=== PATIENT | male | born 1970 | race Caucasian/White ===

== ENCOUNTER 2018-03-27 20:27 | Observation (INO) ==
--- NOTE | 2018-03-27 22:05 | ED ---
HPI General Chief complaint: Hypertension Stated complaint: heart racing /high bp Time Seen by Provider: 03/27/18 21:37 Source: patient Mode of arrival: ambulatory Limitations: no limitations History of Present Illness HPI narrative: 47yo M with PMH of HTN here with c/o left sided chest pain around 7pm. Pain is sharp, nonradiating and associated with diaphoresis and dizziness. Said pain has resolved. Denies any fever, sob, n/v, abdominal pain , focal weakness or numbness. Related Data Home Medications Medication Instructions Recorded Confirmed No Known Home Medications 03/27/18 03/27/18 Allergies Allergy/AdvReac Type Severity Reaction Status Date / Time No Known Allergies Allergy Verified 03/27/18 20:39 Review of Systems ROS: all other systems reviewed are negative [facility] Medical History Medical History History of deviated nasal septum (Acute) Hypertension (Acute) Surgical History Surgical History Hx of appendectomy (Acute) S/P LASIK surgery of both eyes (Acute) Social History Social History Substance History: No History of Abuse Second Hand Smoke Exposure: Yes Smoking Status: Never smoker How Often Do You Have a Drink Containing Alcohol: Never Recent Travel in [facility] within the Last 8 Weeks: No Recent Out of Country Travel within the Last 8 Weeks: No Immunization History Tetanus Immunization: Unsure Exam Narrative Exam Narrative: GENERAL: 47yo M not in distress. SKIN: Focused skin assessment warm/dry. HEAD: Atraumatic. Normocephalic. EYES: Pupils equal and round. No scleral icterus. No injection or drainage. ENT: No nasal bleeding or discharge. Mucous membranes pink and moist. NECK: Trachea midline. No JVD. CARDIOVASCULAR: Regular rate and rhythm. No murmur appreciated. RESPIRATORY: No accessory muscle use. Clear to auscultation. Breath sounds equal bilaterally. GASTROINTESTINAL: Abdomen soft, non-tender, nondistended. MUSCULOSKELETAL: No obvious deformities. No clubbing. No cyanosis. No edema. NEUROLOGICAL: Awake and alert. No obvious cranial nerve deficits. Motor grossly within normal. Normal speech. PSYCHIATRIC: Appropriate mood and affect; insight and judgment normal. Course Initial Documented Vital Signs Temperature 97.6 F 03/27/18 20:39 Pulse Rate 83 03/27/18 20:39 Respiratory Rate 20 03/27/18 20:39 Blood Pressure 148/69 H 03/27/18 20:39 Pulse Oximetry 96 03/27/18 20:39 Last Documented Vital Signs Temperature 97.6 F 03/27/18 20:39 Pulse Rate 69 03/27/18 22:45 Respiratory Rate 18 03/27/18 22:45 Blood Pressure 123/74 03/27/18 22:45 Pulse Oximetry 95 03/27/18 22:45 Medical Decision Making MDM Narrative Medical decision making narrative: 47yo M with atypical chest pain but has some risk factors. Last stress test was 3 years ago. Labs reviewed, no leukocytosis. H/H normal. Troponin negative. CXR negative. Pt given aspirin. He is currently chest pain free. He does not see a physician and last time he saw one was 3 years ago when he had the chest pain and negative stress test here. Will admit to chest pain center for serial EKG and cardiac enzymes. Discussed with Dr. Mcleod and accepted to her service. Medical Screen Exam Complete: Yes Emergency Medical Condition: Yes Differential Diagnosis Differential Diagnosis: ACS vs. gastritis vs. costonchondritis Lab Data Result diagrams: 03/27/18 22:05 03/27/18 22:05 Lab Results 03/27/18 03/27/18 03/27/18 Range/Units 22:05 22:05 22:05 CBC w Diff Auto diff final WBC 6.1 (4.0-11.0) th/mm3 RBC 4.53 (4.50-5.90) mil/mm3 Hgb 13.5 (13.0-17.0) gm/dL Hct 40.4 (39.0-51.0) % MCV 89.2 (80.0-100.0) fL MCH 29.7 (27.0-34.0) pg MCHC 33.3 (32.0-36.0) % RDW 13.4 (11.6-17.2) % Plt Count 266 (150-450) th/mm3 MPV 8.2 (7.0-11.0) fL Neut % (Auto) 50.7 (16.0-70.0) % Lymph % (Auto) 34.3 (9.0-44.0) % Barbour % (Auto) 10.9 H (0.0-8.0) % Eos % (Auto) 3.5 (0.0-4.0) % Baso % (Auto) 0.6 (0.0-2.0) % Neut # (Auto) 3.1 (1.8-7.7) th/mm3 Lymph # (Auto) 2.1 (1.0-4.8) th/mm3 Barbour # (Auto) 0.7 (0.0-0.9) th/mm3 Eos # (Auto) 0.2 (0.0-0.4) th/mm3 Baso # (Auto) 0.0 (0.0-0.2) th/mm3 WBC Differential . Differential Comment . PT 9.8 (9.8-11.6) sec INR 1.0 Ratio APTT 28.7 (23.4-31.7) sec Sodium 139 (136-145) meq/L Potassium 3.7 (3.5-5.1) meq/L Chloride 105 (98-107) meq/L Carbon Dioxide 27.2 (21.0-32.0) meq/L Anion Gap 7 (5-15) meq/L BUN 17 (7-18) mg/dL Creatinine 1.00 (0.60-1.30) mg/dL Estimated GFR 80 L (>89) mL/min Random Glucose 107 H (74-106) mg/dL Calcium 8.0 L (8.5-10.1) mg/dL Troponin I Less than 0.02 L (0.02-0.05) ng/mL Imaging Data Radiologist's impression: Chest X-Ray 03/27/18 21:42 CONCLUSION: Negative examination. ECG Data EKG Prior to Arrival: No Attestation: I personally reviewed and interpreted this ECG as follows: Interpretation: NSR 64bpm. Normal axis. AL interval 146. No significant ST elevation or depression. Discharge Plan Discharge Disposition Patient Disposition: ED Admit(ED Internal Use Only) Discharge Order Discharge Orders: ED Use Only Admit Order (Routine); Ordered 03/27/18 Ordered By: Linh Green Discharge Details Diagnosis: Chest pain Physicians Team ED Provider: Linh Green Primary Care Provider: Primary Care GaeliAdenike Attending Provider: Argelia Mcleod Status ED Status: Admitted Observation Patient
--- NOTE | 2018-03-27 22:05 | XR ---
EXAM DATE: 03/27/2018 10:01 PM EST AGE/SEX: 47 years / Male INDICATIONS: Short of breath, chest pain and dizziness. CLINICAL DATA: This is the patient's initial encounter. Patient reports that signs and symptoms have been present for 1 day and indicates a pain score of 3/10. MEDICAL/SURGICAL HISTORY: None. None. COMPARISON: No prior exams available for comparison. FINDINGS: A single AP view of the chest demonstrates the lungs to be symmetrically aerated without evidence of mass, infiltrate or effusion. The cardiomediastinal contours are unremarkable. Osseous structures a re intact. CONCLUSION: Negative examination. Electronically signed by: Tal Cordova MD 03/27/2018 10:03 PM EST
[2018-03-27 22:24] LABS: Baso % (Auto) 0.6 % (0.0-2.0); Eos # (Auto) 0.2 th/mm3 (0.0-0.4); Eos % (Auto) 3.5 % (0.0-4.0); Hematocrit 40.4 % (39.0-51.0); Hemoglobin 13.5 gm/dL (13.0-17.0); Lymph # (Auto) 2.1 th/mm3 (1.0-4.8); Lymph % (Auto) 34.3 % (9.0-44.0); Mean Corpuscular HGB Conc 33.3 % (32.0-36.0); Mean Corpuscular Hemoglobin 29.7 pg (27.0-34.0); Mean Corpuscular Volume 89.2 fL (80.0-100.0); Mean Platelet Volume 8.2 fL (7.0-11.0); Mono # (Auto) 0.7 th/mm3 (0.0-0.9); Mono % (Auto) 10.9 % (0.0-8.0); Neut # (Auto) 3.1 th/mm3 (1.8-7.7); Neut % (Auto) 50.7 % (16.0-70.0); Platelet Count 266 th/mm3 (150-450); Red Blood Count 4.53 mil/mm3 (4.50-5.90); Red Cell Distribution Width 13.4 % (11.6-17.2); White Blood Count 6.1 th/mm3 (4.0-11.0)
[2018-03-27 22:30] LABS: Chloride 105 meq/L (98-107); Potassium 3.7 meq/L (3.5-5.1); Sodium 139 meq/L (136-145)
[2018-03-27 22:33] LABS: Anion Gap 7 meq/L (5-15); Blood Urea Nitrogen 17 mg/dL (7-18); Carbon Dioxide 27.2 meq/L (21.0-32.0); Glucose,Random 107 mg/dL (74-106)
[2018-03-27 22:36] LABS: Activated Partial Thrombo Time 28.7 sec (23.4-31.7); Glomerular Filtration Rate 80 mL/min (>89); Prothrombin Time 9.8 sec (9.8-11.6)
[2018-03-27] MEDS ORDERED: Aspirin 325 MG Tablet PO ONE (22:54)
[2018-03-28 02:30] LABS: Creatine Kinase 95 U/L (39-308)
[2018-03-28 06:11] LABS: Creatine Kinase 93 U/L (39-308)
--- NOTE | 2018-03-28 09:11 | P.HP ---
History of Present Illness Primary Care Physician: No Primary Care Physician Chief Complaint: Chest pain History of Present Illness: 47-year-old male with known history of hypertension who presented to the hospital for evaluation of chest pain. Patient states that he has been in normal state of health and he sat down to have dinner last night and started developing a hot burning sensation over his entire chest with pain in the left side of his chest without any radiation to the neck, back, shoulder, arm. He did have some lightheadedness, dizziness, diaphoresis. He denies any shortness of breath or dyspnea. Patient states that it lasted for approximately an hour until he got to the emergency department where he was given aspirin and the pain resolved. Patient has had previous cardiac workup approximately 3 years ago performed by myself with chest pain center admission. Patient did get ruled out for acute coronary event with serial cardiac enzymes and EKGs. Patient did undergo exercise stress test which was negative for any ischemia. Presently the patient is asymptomatic. Patient has not had any recurrence of any chest discomfort, burning sensation in the chest, diaphoresis since being admitted. - Diagnosis (1) Chest pain Review of Systems All other systems reviewed negative except as stated in HPI Constitutional: Reports excessive sweating Cardiovascular: Reports chest pain Neurologic: Reports dizziness PMFSH - History History Provided By: Patient - Medical History Medical History: Medical History (Last Updated 03/27/18 @ 20:44 by Carmella Rich RN) History of deviated nasal septum Hypertension - Surgical History Surgical History: Surgical History (Last Updated 03/27/18 @ 20:44 by Carmella Rich RN) Hx of appendectomy S/P LASIK surgery of both eyes - Family History Family History: Family History (Last Updated 03/28/18 @ 08:57 by TOO Dinh) Father Family history of heart disease Mother History of brain tumor - Tobacco History Second Hand Smoke Exposure: Yes Smoking Status: Never smoker Tobacco Type: Cigarettes - Alcohol History How Often Do You Have a Drink Containing Alcohol: Never - Substance Use History Substance History: No History of Abuse - Travel History Recent Travel in the [place] Within the Last 8 Weeks: No Recent Travel Out of the Country Within the Last 8 Weeks: No - Immunization History Tetanus Immunization: Unsure Medications and Allergies Active Medications: Active Medications Sodium Chloride (Ns Flush) 2 ml IV.FLUSH BID MANDA Last Admin: 03/28/18 08:47 Dose: 2 ml Sodium Chloride (Ns Flush) 2 ml IV.FLUSH PRN PRN PRN Reason: FLUSH AFTER USING IV ACCESS Allergies Allergy/AdvReac Type Severity Reaction Status Date / Time No Known Allergies Allergy Verified 03/27/18 20:39 Home Medications Medication Instructions Recorded Confirmed Type No Known Home Medications 03/27/18 03/27/18 History Exam Vital signs: Vital Signs 03/27/18 20:39 03/27/18 21:20 03/27/18 22:45 Temperature 97.6 F Pulse Rate 83 65 69 Respiratory Rate 20 18 18 Blood Pressure 148/69 H 140/75 123/74 Pulse Oximetry 96 95 95 03/28/18 00:00 03/28/18 00:25 03/28/18 04:23 Temperature 96.3 F L Pulse Rate 67 75 66 Respiratory Rate 18 Blood Pressure 123/67 135/71 Pulse Oximetry 96 97 03/28/18 08:00 Temperature Pulse Rate 71 Respiratory Rate Blood Pressure Pulse Oximetry Intake & Output 03/27/18 03/28/18 03/28/18 18:59 06:59 18:59 Intake Total 0 / 0 Balance 0 / 0 Weight 92 kg Intake: Oral 0 / 0 Other: # Voids 2 # Urine Diapers 1 Weight On Admission 92 kg Narrative: GENERAL: Well-developed, well-nourished, in no acute distress. alert and orientated HEENT: Head is normocephalic without any lesions or masses noted. Facial features are symmetric. Eyes: Pupils equal round reactive to light. Extraocular muscles are intact. Conjunctivae were clear. Oropharyngeal: Pharynx without any erythema edema. Tongue is midline without deviation. Buccal mucosa is moist without any masses or lesions NECK: Supple without any masses. Trachea midline no deviation. No JVD, no bruits are appreciated CARDIAC: Regular rhythm, regular rate. S1/S2 are heard. No murmurs gallops or rubs. LUNGS: Clear to auscultation bilaterally. No wheeze, rhonchi or rales. No use of accessory muscles on inspiration or expiration. ABDOMEN: Soft, nontender. Nondistended. Bowel sounds heard in all 4 quadrants. No organomegaly or masses. Negative rebound, negative guarding EXTREMITIES: No edema, pulses are equal bilaterally. No cyanosis or clubbing NEUROLOGY: Mood and affect appear appropriate. Cranial nerves II through XII grossly intact. Muscle strength 5/5 in upper and lower extremities bilaterally. Deep tendon reflexes are 2+ in upper and lower extremities bilaterally. Results - Labs CBC & Chem 7: 03/27/18 22:05 03/27/18 22:05 Labs: Laboratory Results - last 24 hr 03/27/18 03/27/18 03/27/18 22:05 22:05 22:05 CBC w Diff Auto diff final WBC 6.1 RBC 4.53 Hgb 13.5 Hct 40.4 MCV 89.2 MCH 29.7 MCHC 33.3 RDW 13.4 Plt Count 266 MPV 8.2 Neut % (Auto) 50.7 Lymph % (Auto) 34.3 Cannon % (Auto) 10.9 H Eos % (Auto) 3.5 Baso % (Auto) 0.6 Neut # (Auto) 3.1 Lymph # (Auto) 2.1 Cannon # (Auto) 0.7 Eos # (Auto) 0.2 Baso # (Auto) 0.0 WBC Differential . Differential Comment . PT 9.8 INR 1.0 APTT 28.7 Sodium 139 Potassium 3.7 Chloride 105 Carbon Dioxide 27.2 Anion Gap 7 BUN 17 Creatinine 1.00 Estimated GFR 80 L Random Glucose 107 H Calcium 8.0 L Total Creatine Kinase Troponin I Less than 0.02 L 03/28/18 03/28/18 01:30 04:00 CBC w Diff WBC RBC Hgb Hct MCV MCH MCHC RDW Plt Count MPV Neut % (Auto) Lymph % (Auto) Cannon % (Auto) Eos % (Auto) Baso % (Auto) Neut # (Auto) Lymph # (Auto) Cannon # (Auto) Eos # (Auto) Baso # (Auto) WBC Differential Differential Comment PT INR APTT Sodium Potassium Chloride Carbon Dioxide Anion Gap BUN Creatinine Estimated GFR Random Glucose Calcium Total Creatine Kinase 95 93 Troponin I Less than 0.02 L Less than 0.02 L - Imaging Impressions Chest X-Ray 03/27/18 21:42 CONCLUSION: Negative examination. Caprini VTE Risk Assessment Caprini VTE Risk Assessment: No/Low Risk (score <= 1) Caprini Risk Assessment Model: Point Value = 1 Point Value = 2 Point Value = 3 Point Value = 5 Age 41-60 Minor surgery BMI > 25 kg/m2 Swollen legs Varicose veins or History of unexplained or recurrent spontaneous Oral contraceptives or hormone replacement Sepsis (< 1 month) Serious lung disease, including pneumonia (< 1 month) Abnormal pulmonary function Acute myocardial infarction Congestive heart failure (< 1 month) History of inflammatory bowel disease Medical patient at bed rest Age 61-74 Arthroscopic surgery Major open surgery (> 45 min) Laparoscopic surgery (> 45 min) Malignancy Confined to bed (> 72 hours) Immobilizing plaster cast Central venous access Age >= 75 History of VTE Family history of VTE Factor V Leiden Prothrombin [id number] Lupus anticoagulant Anticardiolipin antibodies Elevated serum homocysteine Heparin-induced thrombocytopenia Other congenital or acquired thrombophilia Stroke (< 1 month) Elective arthroplasty Hip, pelvis, or leg fracture Acute spinal cord injury (< 1 month) Prophylaxis Regimen: Total Risk Factor Score Risk Level Prophylaxis Regimen 0-1 Low Early ambulation 2 Moderate Order ONE of the following: *Sequential Compression Device (SCD) *Heparin 5000 units SQ BID 3-4 Higher Order ONE of the following medications: *Heparin 5000 units SQ TID *Enoxaparin/Lovenox 40 mg SQ daily (WT < 150 kg, CrCl > 30 mL/min) *Enoxaparin/Lovenox 30 mg SQ daily (WT < 150 kg, CrCl > 10-29 mL/min) *Enoxaparin/Lovenox 30 mg SQ BID (WT < 150 kg, CrCl > 30 mL/min) AND/OR *Sequential Compression Device (SCD) 5 or more Highest Order ONE of the following medications: *Heparin 5000 units SQ TID (Preferred with Epidurals) *Enoxaparin/Lovenox 40 mg SQ daily (WT < 150 kg, CrCl > 30 mL/min) *Enoxaparin/Lovenox 30 mg SQ daily (WT < 150 kg, CrCl > 10-29 mL/min) *Enoxaparin/Lovenox 30 mg SQ BID (WT < 150 kg, CrCl > 30 mL/min) AND *Sequential Compression Device (SCD) Assessment and Plan - Assessment (1) Chest pain Code(s): R07.9 - Chest pain, unspecified Status: Acute - Plan Chest pain -Patient with increased risk factors include male, hypertension, family history of heart disease -Patient has been ruled out for acute coronary event with serial cardiac enzymes that are negative -Serial EKGs performed that shows normal sinus rhythm without any changes -Exercise stress test was performed and indicated no signs of ischemia, -Patient continued on aspirin -Continue monitor telemetry Hypertension, untreated -Blood pressure appears to be stable at this time -Discussed and counseled the patient on hypertension, appropriate outpatient follow-up with primary medical doctor DVT prevention -Low risk, early ambulation Discharge Planning: Discharge home in stable condition Activity: Ad acosta. Diet: Healthy heart diet Medication per medication reconciliation Follow-up with primary medical doctor in 1 week
[2018-03-28 09:34] VITALS: BP 135/61; PULSE 61; RESP 17; TEMP 98.4; O2SAT 96
--- NOTE | 2018-03-28 14:42 | ECG ---
Date Performed: 03/28/2018 Time Performed: 04:06:54 PTAGE: 47 years EKG: Sinus rhythm NORMAL ECG PREVIOUS TRACING : 03/28/2018 01.24 Since previous tracing, no significant change noted DOCTOR: Russell Heck Interpretating Date/Time 03/28/2018 14:40:35
--- NOTE | 2018-03-28 14:43 | ECG ---
Date Performed: 03/28/2018 Time Performed: 01:24:44 PTAGE: 47 years EKG: SINUS BRADYCARDIA BORDERLINE ECG PREVIOUS TRACING : 03/27/2018 20.52 Since previous tracing, no significant change noted DOCTOR: Russell Heck Interpretating Date/Time 03/28/2018 14:41:56
--- NOTE | 2018-03-28 14:45 | ECG ---
Date Performed: 03/27/2018 Time Performed: 20:52:31 PTAGE: 47 years EKG: Sinus rhythm NORMAL ECG INTERPRETATION BASED ON A DEFAULT AGE OF 40 YEARS PREVIOUS TRACING : 03/30/2015 04.36 Since previous tracing, no significant change noted DOCTOR: Russell Heck Interpretating Date/Time 03/28/2018 14:43:57
--- NOTE | 2018-03-28 14:52 | TR ---
Date Performed: 03/28/2018 Time Performed: 09:53:42 DOCTOR: Russell Heck DRUG LIST: CLINICAL HISTORY: REASON FOR TEST: Chest pain REASON FOR ENDING: Completed Protocol OBSERVATION: Arrhythmia: None Chest Pain: None CONCLUSION: Patient tolerated LUIS FERNANDO protocol with Total Exercise Time=9:00 Maximum TY=228 % Max HR Achieved=90.0% Maximum ML=929/78, Patient was asymptomatic throught procedure. During peak exercis e, upsloping ST segments.HR and BP approriate response to exercise. Recovery period, HR and BP return ed to baseline COMMENTS: Patient exercised using the Luis Fernando protocol. No electrocardiographic changes were seen to suggest ischemia. Hemodynamic response to exercise was normal. No significant arrhythmia was prese nt.
== END 2018-03-28 11:22 | disposition home or self-care (01) ==
LOC: PHEDA 20:27 → PHED 20:27 → PH3 03-28 00:25
PROVIDERS: ADMIT Internal Medicine; ATTEND Internal Medicine